=== PATIENT | female | born 1975 | race Two or more races ===

== ENCOUNTER 2022-04-02 23:21 | Emergency (ER) | payer BC ==
[2022-04-03 00:02] VITALS: RESP 18
[2022-04-03] MEDS ORDERED: CEPHALEXIN 500 MG CAP PO STA (00:43)
--- NOTE | 2022-04-03 00:47 | ED ---
Extremity Problem HPI - General Chief complaint: Extremity Problem,Nontraumatic Stated complaint: sewing needle in hand Time Seen by Provider: 04/03/22 00:37 Source: patient, RN notes reviewed Mode of arrival: ambulatory - History of Present Illness Initial comments: Patient states she was cleaning off a table earlier today and slid her hand across a table and there was a sewing needle in place which went into the thenar eminence of her right hand. Patient went to urgent care and had x-rays done which showed the needle is embedded in the soft tissues. Patient had an antibiotic called in for her. Patient had tetanus updated. Patient denies any other injuries. Patient did not get her first dose of antibiotic as of yet. No headache, no fever or chills, no changes in vision or hearing, no sore throat or difficulty with speech, no neck pain, no chest pain or shortness of breath, no abdominal pain, no nausea or vomiting, no changes in urination or bowel movements, no numbness or tingling, no skin rashes or lesions. - Related Data Allergies Allergy/AdvReac Type Severity Reaction Status Date / Time No Known Allergies Allergy Verified 04/03/22 00:02 Review of Systems ROS Statement: Those systems with pertinent positive or pertinent negative responses have been documented in the HPI. ROS Other: All systems not noted in ROS Statement are negative. Past Medical History Past Medical History: No Reported History History of Any Multi-Drug Resistant Organisms: None Reported Past Surgical History: No Surgical Hx Reported Past Psychological History: No Psychological Hx Reported Smoking Status: Current every day smoker Past Alcohol Use History: None Reported Past Drug Use History: None Reported General Exam General appearance: alert, in no apparent distress Head exam: Present: atraumatic, normocephalic, normal inspection Eye exam: Present: normal appearance, PERRL, EOMI. Absent: scleral icterus, conjunctival injection, periorbital swelling ENT exam: Present: normal exam, mucous membranes moist Neck exam: Present: normal inspection. Absent: tenderness, meningismus, lymphadenopathy Respiratory exam: Present: normal lung sounds bilaterally. Absent: respiratory distress, wheezes, rales, rhonchi, stridor Cardiovascular Exam: Present: regular rate, normal rhythm, normal heart sounds. Absent: systolic murmur, diastolic murmur, rubs, gallop, clicks Extremities exam: Present: normal inspection, full ROM, normal capillary refill. Absent: tenderness, pedal edema, joint swelling, calf tenderness Back exam: Present: normal inspection Neurological exam: Present: alert, oriented X3, CN II-XII intact. Absent: altered, normal gait, abnormal gait Psychiatric exam: Present: normal affect, normal mood Skin exam: Present: warm, dry, intact, normal color, other (Patient has a tiny puncture wound noted to the thenar eminence of her right hand with minimal amount of dried blood. No visual abnormality otherwise. Neurovascular status intact). Absent: rash, cyanosis, diaphoretic, erythema, urticaria, vesicles, petechiae, pallor, mottled, abrasion Course Vital Signs 04/02/22 23:59 Temperature 98.0 F Pulse Rate 109 H Respiratory 18 Rate O2 Sat by Pulse 98 Oximetry Medical Decision Making - Medical Decision Making Patient does have a foreign body which is reviewed on the uploaded images from the urgent care. However is difficult to ascertain the exact position of the foreign body in relationship to the images. This is not visualized superficially. Patient states the needle didn't break into her hand. The case was discussed in detail with ED attending physician. Presentation, findings, treatment plan discussed in detail. Patient will need to follow-up with a hand surgeon. Prophylactic antibiotics started here. Patient has a prescription called in by urgent care. I told her to pick that up in the morning. Tetanus is updated urgent care. Spine to the patient that she needs to call the hand surgeon at 8 AM in the morning to schedule follow-up. Patient voices understanding. Patient was told to return to the ER for any signs or symptoms worsen. Told to return immediately if any other problems arise. All questions answered. Treatment plan discussed. Patient in agreement Every effort has been made to ensure accuracy of this dictation. However, due to the limitations of electronic medical records and dictation devices, errors in charting still occur. Supervising physicians Dr. Zacarias, Disposition Clinical Impression: Foreign body in soft tissue Narrative: Right hand Disposition: HOME SELF-CARE Condition: Good Instructions (If sedation given, give patient instructions): Soft Tissue Foreign Body (ED) Additional Instructions: Take the antibiotics as directed. Call at 8 AM to schedule follow-up gustavo ointment with a hand surgeon. Is patient prescribed a controlled substance at d/c from ED?: No Referrals: Familia Sher DO [Doctor of Osteopathic Medicine] - As Soon As Possible Time of Disposition: 01:03
[2022-04-03 01:15] VITALS: BP 125/85; PULSE 100; TEMP 97.8
== END 2022-04-03 01:16 | disposition home or self-care (01) ==
LOC: EC 23:21
DX: S60.551A Superficial foreign body of right hand, initial encounter (principal); F17.200 Nicotine dependence, unspecified, uncomplicated; W27.3XXA Contact with needle (sewing), initial encounter
CPT/HCPCS: 99282